=== PATIENT | female | born 1950 | race Caucasian/White ===

== ENCOUNTER 2020-04-05 07:48 | Emergency (ER) | payer MEDICARE ==
[~2020-04-05] VITALS: Ht 165.1 cm; Wt 89.1 kg
[2020-04-05 07:58] VITALS: BP 126/85
--- NOTE | 2020-04-05 08:07 | PHYS DOC ---
Past History Past Medical History: Hypertension, Hypothyroid Past Surgical History: Hysterectomy Alcohol Use: None General Adult EDM: Chief Complaint: ABDOMINAL PAIN HPI: HPI: 70-year-old female coming in with right upper quadrant abdominal pain starting about 10 PM yesterday. Says she has been having gallbladder problems and trying to adhere to a low-fat diet but had a piece of pizza yesterday evening. This pain came on gradually and has gotten worse over the night. Had a bowel movement to the did not change the pain. Has not had any work-up on her gallbladder. Denies any cough, shortness of breath, fever, diaphoresis, vomiting. Said the pain is crampy and radiates to her right shoulder. Review of Systems: Review of Systems: Constitutional: Denies fever or chills Eyes: Denies change in visual acuity HENT: Denies nasal congestion or sore throat Respiratory: Denies cough or shortness of breath Cardiovascular: Denies chest pain or edema GI: Right upper quadrant abdominal pain : Denies dysuria Musculoskeletal: Denies back pain or joint pain Integument: Denies rash Neurologic: Denies headache, focal weakness or sensory changes Endocrine: Denies polyuria or polydipsia Lymphatic: Denies swollen glands Psychiatric: Denies depression or anxiety Heart Score: Risk Factors: Risk Factors: DM, Current or recent (<one month) smoker, HTN, HLP, family history of CAD, obesity. Risk Scores: Score 0 - 3: 2.5% MACE over next 6 weeks - Discharge Home Score 4 - 6: 20.3% MACE over next 6 weeks - Admit for Clinical Observation Score 7 - 10: 72.7% MACE over next 6 weeks - Early Invasive Strategies Allergies: Allergies: Allergies Coded Allergies Type Severity Reaction Last Updated Verified No Known Drug Allergies 04/05/20 No Physical Exam: PE: Constitutional: Well developed, well nourished, mild distress, non-toxic appearance. [] HENT: Normocephalic, atraumatic, bilateral external ears normal, oropharynx moist, no oral exudates, nose normal. [] Eyes: PERRLA, EOMI, conjunctiva normal, no discharge. [] Neck: Normal range of motion, no tenderness, supple, no stridor. [] Cardiovascular:Heart rate regular rhythm, no murmur [] Lungs & Thorax: Bilateral breath sounds clear to auscultation [] Abdomen: Bowel sounds normal, soft, right upper quadrant tenderness, positive Johnson sign, no rebound. Mild guarding Skin: Warm, dry, no erythema, no rash. [] Back: No tenderness, no CVA tenderness. [] Extremities: No tenderness, no cyanosis, no clubbing, ROM intact, no edema. [] Neurologic: Alert and oriented X 3, normal motor function, normal sensory function, no focal deficits noted. [] Psychologic: Affect normal, judgement normal, mood normal. [] Current Patient Data: Vital Signs: Vital Signs Date Time Temp Pulse Resp B/P (MAP) Pulse Ox O2 Delivery O2 Flow Rate FiO2 04/05/20 07:58 97.0 89 18 126/85 (99) 100 EKG: EKG: Normal sinus rhythm, heart rate 71 bpm, leftward axis. No ectopy, no ST elevation or depression. T waves unremarkable [] Radiology/Procedures: Radiology/Procedures: Ultrasound of the right upper quadrant of the abdomen 04/05/2020 CLINICAL HISTORY: Right upper quadrant abdominal pain. TECHNIQUE: A real-time ultrasound examination of the right upper quadrant of the abdomen was performed. Multiple images were obtained. FINDINGS: Echogenic gallstones are seen within the gallbladder. A 2.6 cm gallstone is seen within the gallbladder neck. The gallbladder is contracted. The patient is tender with palpation of the ultrasound transducer over the gallbladder (positive sonographic Johnson sign). The gallbladder wall is difficult to evaluate due to the contracted nature of the gallbladder. No pericholecystic fluid is seen. The common bile duct measures 2 mm in diameter which is within normal limits. The liver is normal in size measuring 14.4 cm in length. No focal abnormality of the liver is seen. The pancreas is not well-visualized due to overlying bowel gas. The right kidney is within normal limits. No free fluid is seen. IMPRESSION: Cholelithiasis. Positive sonographic Johnson sign.[] Course & Med Decision Making: Course & Med Decision Making Pertinent Labs and Imaging studies reviewed. (See chart for details) Pain resolved with Bentyl [] Dragon Disclaimer: Dragon Disclaimer: This electronic medical record was generated, in whole or in part, using a voice recognition dictation system. Departure Departure: Impression: Primary Impression: Cholelithiasis Disposition: 01 DC HOME SELF CARE/HOMELESS Condition: STABLE Referrals: RENAE MONTEMAYOR MD (PCP) [facility] SURGERY Patient Instructions: Cholelithiasis AURY CARDENAS MD Apr 05, 2020 08:07
[2020-04-05] MEDS ORDERED: DICYCLOMINE 20 MG/2 ML VIAL. IM ONE (08:15)
--- NOTE | 2020-04-05 08:31 | EKG ---
[address] [address] Test Date: 2020-04-05 Test Time: 08:08:46 Pat Name: QUINTON SNELL Department: Room: Gender: F [employer]: : 1950 Requested By: AURY CARDENAS Order Number: [id number] Reading MD: Measurements Intervals [place] Rate: 71 P: 26 NE: 200 QRS: -1 QRSD: 102 T: 8 QT: 412 QTc: 453 Interpretive Statements SINUS RHYTHM LEFTWARD AXIS OTHERWISE NORMAL ECG RI6.02 No previous ECG available for comparison
[2020-04-05 08:36] LABS: BASO # 0.1 x10^3/uL (0.0-0.2); BASO % 1 % (0-3); EOS # 0.2 x10^3/uL (0.0-0.7); EOS % 2 % (0-3); HEMATOCRIT 37.6 % (36.0-47.0); HEMOGLOBIN 12.8 g/dL (12.0-15.5); LYMPH # 1.5 x10^3/uL (1.0-4.8); LYMPH % 19 % (24-48); MEAN CORPUSCULAR HEMOGLOBIN 31 pg (25-35); MEAN CORPUSCULAR HGB CONC 34 g/dL (31-37); MEAN CORPUSCULAR VOLUME 90 fL (79-100); MONO # 0.4 x10^3/uL (0.0-1.1); MONO % 6 % (0-9); NEUT # 5.7 x10^3uL (1.8-7.7); NEUT % 72 % (31-73); PLATELET COUNT 266 x10^3/uL (140-400); RED BLOOD COUNT 4.15 x10^6/uL (3.50-5.40); RED CELL DISTRIBUTION WIDTH 12.7 % (11.5-14.5); WHITE BLOOD COUNT 7.9 x10^3/uL (4.0-11.0)
[2020-04-05 08:45] LABS: CREATININE 1.6 mg/dL (0.6-1.0); GFR 31.7; POTASSIUM 3.6 mmol/L (3.5-5.1)
[2020-04-05 08:48] LABS: BACTERIA,URINE FEW /HPF (0-FEW); BILIRUBIN,URINE NEG (NEG); CLARITY,URINE HAZY; COLOR,URINE YELLOW; GLUCOSE,URINE NEG (NEG); HYALINE CASTS, URINE FEW /HPF; NITRITE,URINE NEG (NEG); SQUAMOUS EPITHELIAL CELL,UR MANY /LPF; UROBILINOGEN,URINE 0.2 mg/dL (0.2 mg/dL)
[2020-04-05 08:51] LABS: ALBUMIN 3.9 g/dL (3.4-5.0); ALBUMIN/GLOBULIN RATIO 1.3 (1.0-1.7); TOTAL BILIRUBIN 0.4 mg/dL (0.2-1.0); TOTAL PROTEIN 6.9 g/dL (6.4-8.2)
--- NOTE | 2020-04-05 09:55 | RAD ---
Ultrasound of the right upper quadrant of the abdomen 04/05/2020 CLINICAL HISTORY: Right upper quadrant abdominal pain. TECHNIQUE: A real-time ultrasound examination of the right upper quadrant of the abdomen was performed. Multiple images were obtained. FINDINGS: Echogenic gallstones are seen within the gallbladder. A 2.6 cm gallstone is seen within the gallbladder neck. The gallbladder is contracted. The patient is tender with palpation of the ultrasound transducer over the gallbladder (positive sonographic Johnson sign). The gallbladder wall is difficult to evaluate due to the contracted nature of the gallbladder. No pericholecystic fluid is seen. The common bile duct measures 2 mm in diameter which is within normal limits. The liver is normal in size measuring 14.4 cm in length. No focal abnormality of the liver is seen. The pancreas is not well-visualized due to overlying bowel gas. The right kidney is within normal limits. No free fluid is seen. IMPRESSION: Cholelithiasis. Positive sonographic Johnson sign. Electronically signed by: Khurram Ramos MD (04/05/2020 9:52 AM) [id number]
[2020-04-05] MEDS ORDERED: DICY10CA3 PO (10:19)
== END 2020-04-05 10:27 | disposition home or self-care (01) ==
LOC: ER 07:48
DX: K80.20 Calculus of gallbladder without cholecystitis without obstruction (principal); I10 Essential (primary) hypertension; E03.9 Hypothyroidism, unspecified; Z90.710 Acquired absence of both cervix and uterus
CPT/HCPCS: 36415; 76705; 80053; 81001; 83690; 84484; 85025; 93005; 96372; 99285; J0500